=== PATIENT | male | born 1970 | race Caucasian/White ===

== ENCOUNTER 2017-04-10 22:01 | Inpatient (IN) ==
[2017-04-10 22:32] LABS: Bilirubin,Urine Small (Negative); Blood,Urine Negative (Negative); Clarity,Urine Clear (Clear); Color,Urine Dark Yellow (Yellow); Glucose,Urine (UA) Normal (Normal); Ketones,Urine Negative (Negative); Leukocyte Esterase,Urine Negative (Negative); Nitrite,Urine Negative (Negative); PH,Urine 5.5 pH Units (5.0-8.0); Protein,Urine 30 mg/dL (Neg-Trace); Specific Gravity,Urine > 1.030 (1.010-1.025); Urobilinogen,Urine Normal (Normal)
[2017-04-10 22:35] LABS: Bacteria,Urine None Seen per hpf (None-Few); Hyaline Casts,Urine Moderate per lpf (None-Few); Squamous Epithelial Cell,Urine Many per lpf (None-Few)
[2017-04-10 22:43] LABS: Basophils # 0.1 K/mcL (0.0-0.2); Basophils % 0.6 %; Eosinophils # 0.4 K/mcL (0.0-0.6); Eosinophils % 3.5 %; Hematocrit 45.4 % (37.5-50.1); Hemoglobin 14.7 g/dL (12.9-16.9); Immature Granulocytes % 0.4 % (0-4); Immature Platelets 4.6 % (1.1-6.1); Lymphocytes # 3.1 K/mcL (0.6-4.6); Lymphocytes % 31.4 %; Mean Corpuscular HGB Conc 32.4 g/dL (31.6-35.5); Mean Corpuscular Hemoglobin 28.9 pg (28.0-33.3); Mean Corpuscular Volume 89.2 fL (83.0-100.0); Mean Platelet Volume 10.1 fL (9.4-12.4); Monocytes # 0.7 K/mcL (0.0-1.3); Monocytes % 6.6 %; Neutrophils # 5.7 K/mcL (1.6-8.9); Platelet Count 318 K/mcL (140-400); Red Blood Count 5.09 M/mcL (4.19-5.50); Red Cell Distribution Width 13.9 % (11.5-14.5); Segmented Neutrophils % 57.5 %
[2017-04-10 22:46] LABS: Amphetamine Screen,Urine Negative ng/mL (Cutoff=1000); Barbiturate Screen,Urine Negative ng/mL (Cutoff=200); Benzodiazepines Screen,Urine Negative ng/mL (Cutoff=200); Cannabinoid Screen,Urine Positive ng/mL (Cutoff = 50); Cocaine Screen,Urine Negative ng/mL (Cutoff= 300); Opiate Screen,Urine Positive ng/mL (Cutoff=300); Phencyclidine Screen,Urine Negative ng/mL (Cutoff=25)
[2017-04-10 22:51] LABS: Calcium Oxalate Crystals,Urine Present; Mucus,Urine Many (Few)
[2017-04-10 22:57] LABS: Acetaminophen < 1.0 mcg/mL (10-30); BUN/Creatinine Ratio 12 (6-26); Blood Urea Nitrogen 10 mg/dL (8-26); Calcium 9.8 mg/dL (8.6-10.8); Carbon Dioxide 22 mEq/L (19-29); Chloride 108 mEq/L (98-109); Ethanol < 10 mg/dL (0-10); Glucose 102 mg/dL (70-99); Osmolality,Calculated 287 (280-300); Salicylate < 5.0 mg/dL (15-30); Sodium 139 mEq/L (136-145); eGFR For African Americans > 60 (> 60); eGFR For Non-African Americans > 60 (> 60)
[2017-04-10] MEDS ORDERED: Ibuprofen 600 MG TABLET PO ONE (23:15)
--- NOTE | 2017-04-10 23:44 | Emergency Department Note ---
Disposition Clinical Impression: Schizoaffective disorder, bipolar type, Suicidal ideation Disposition: Admitted As Inpatient Condition: Fair Time of Disposition: 02:29 Psych HPI - General Chief Complaint: ED Psychiatric Symptoms Stated Complaint: SI Time Seen by Provider: 04/10/17 22:05 Source: patient Nursing Notes Reviewed: Yes Vital Signs Reviewed: Yes - History of Present Illness HPI Narrative: 47-year-old male presents with suicidal and homicidal ideation. He states a history of bipolar disease, PTSD, schizoaffective disorder with bouts of depression. He does mention suicidal ideation but denies a plan area they say he has been hearing voices. He states he has been noncompliant with his medications for probably 2 months. He states that he did not like how they had made him feel. He does state though that he is willing to restart his medications because he realizes he needs these to take care of his mother. He is accompanied by his brother. He mentions he had recently moved from [place] where he resides. He has returned to [place] to help care for his mom who is on hospice. States he has been in [place] for approximately one month. He has not had established care with a primary care provider mental health provider here due to his insurance is [place] Medicaid, and he has not received approval for [place] Medicaid. He states his medications are Abilify 30 daily, Prozac 40 daily , and gabapentin 803 times daily. He also is noncompliant with his the cerebral 10 and simvastatin 20. Also, Does mention a history of left knee surgery, and recently fell earlier tonight and also mentions left knee pain. He denies any fevers, chills, weakness, recent illness. - Related Data Previous Rx's Medication Instructions Recorded Divalproex (24 HR) [Depakote ER 500 mg PO BID #60 tab.er.24h 05/07/15 (24 HR)] Escitalopram [Lexapro] 10 mg PO DAILY #30 tablet 05/07/15 RisperiDONE [RisperDAL] 1 mg PO BID #60 tablet 05/07/15 Allergies Allergy/AdvReac Type Severity Reaction Status Date / Time sulfamethoxazole Allergy Hives Verified 04/10/17 22:06 [From Bactrim] trimethoprim [From Bactrim] Allergy Hives Verified 04/10/17 22:06 morphine AdvReac Itching Verified 05/04/15 11:47 All systems ED: reviewed and negative except as stated. Constitutional: Denies: fever, chills Eyes: Denies: eye discharge ENT ED: Denies: throat pain Cardiovascular: Denies: palpitations Respiratory: Denies: dyspnea Gastrointestinal: Denies: nausea, vomiting Genitourinary: Denies: dysuria Musculoskeletal: Reports: as per HPI. Denies: back pain, neck pain Integumentary: Denies: rash Neurological: Denies: headache Psychiatric: Reports: as per HPI Endocrine: Denies: fatigue Hematological/Lymphatic: Denies: easy bleeding Allergic/Immunologic: Denies: facial swelling Past Medical History - Past Medical History Medical history: Reports: hyperlipidemia, other Surgical history: Reports: appendectomy, other Psychiatric history: Reports: bipolar, depression, prior suicide attempt, schizophrenia, previous psychiatric hospitalization - Social History Smoking Status: Current every day smoker Smokeless Tobacco Status: Yes Alcohol use: Reports: none Drug use: Reports: marijuana Physical Exam HEAD: atraumatic, normocephalic EYE: EOM intact, no conjunctival injection ENT: mucous membranes moist, voice normal in character, nose normal in appearance, no rhinorrhea NECK: supple, normal ROM without stiffness CHEST: symmetric chest wall rise RESPIRATORY: Present: normal lung sounds bilaterally, no respiratory distress CARDIOVASCULAR: Regular rhythm and rate ABDOMINAL EXAM: No evidence of abdominal discomfort or peritoneal signs; Absent : guarding, rebound, distention EXTREMITIES: Left knee swollen, tender. Left knee extension is intact. Otherwise extremities Grossly unremarkable on simple inspection; no deformities or decreased ROM; Absent: BLE edema BACK: Absent: CVA tenderness (R), CVA tenderness (L) NEURO: Present: alert, reflexes normal PSYCH: Suicidal and homicidal ideation is present. Normal affect; no evidence of disorganized thoughts or confusion SKIN: warm, dry, intact, normal color for age and race; no concerning rashes or lesions - General Limitations: no limitations General appearance: alert, in no apparent distress Course Course Narrative: 47-year-old male presents with 2 separate complaints. First he mentions a injury to his left knee. His knee does appear swollen and tender. X-rays ordered. Ibuprofen ordered. Patient also has a stated history of psychiatric illness, and states worsening depression, he was suicidal ideation, and auditory hallucinations. Patient seen and examined. We will try to medically clear him for 1A evaluation. - Reevaluation(s) Reevaluation #1: X-rays reviewed by myself interpreted by radiologist. Concerning signs for joint instability. Patient is status post knee arthroplasty. I did discuss with him likely need for outpatient orthopedic evaluation for his knee injury in his knee pain. He was agreeable to this and has requested a referral to Dr. Mcallister in [place] this is near where patient lives. Workup unremarkable. Analgesics ordered. Ice pack applied. 1A called Time: 00:47 Vital Signs Temperature 98.2 F 04/10/17 22:02 Pulse Rate 97 04/10/17 22:02 Respiratory Rate 18 04/10/17 22:02 Blood Pressure 132/73 04/10/17 22:02 O2 Sat by Pulse Oximetry 96 04/10/17 22:02 Temperature 97.6 F 04/11/17 02:04 Pulse Rate 78 04/11/17 02:04 Respiratory Rate 16 04/11/17 02:04 Blood Pressure 114/82 04/11/17 02:04 O2 Sat by Pulse Oximetry 96 04/10/17 22:02 Oxygen Delivery Oxygen Delivery Room Air Psych - MDM Narrative Medical decision making narrative: Patient was medically cleared and evaluated by when a staff who are recommending patient be admitted for further evaluation and stabilization. Patient currently suicidal or homicidal ideation noncompliant on his medications. I did discuss with one a staff nurse Maddy, patient has had the surgery with recent mechanical fall to the ground left knee pain with joint instability. She did mention patient will not be able to have an Marito bandage and 18. I did inform her that patient will need to have assistance walking, as he has pain with weightbearing and joint instability. Patient has been pink slipped. Workup unremarkable. Patient will be admitted and good condition. - Lab Data Result diagrams: 04/10/17 22:38 04/10/17 22:38 Lab Results 04/10/17 04/10/17 04/10/17 Range/Units 22:23 22:23 22:38 WBC 10.0 (4.3-11.1) K/mcL RBC 5.09 (4.19-5.50) M/mcL Hgb 14.7 (12.9-16.9) g/dL Hct 45.4 (37.5-50.1) % MCV 89.2 (83.0-100.0) fL MCH 28.9 (28.0-33.3) pg MCHC 32.4 (31.6-35.5) g/dL RDW 13.9 (11.5-14.5) % Plt Count 318 (140-400) K/mcL MPV 10.1 (9.4-12.4) fL Immature Gran % 0.4 (0-4) % Seg Neutrophils % 57.5 % Lymphocytes % 31.4 % Monocytes % 6.6 % Eosinophils % 3.5 % Basophils % 0.6 % Neutrophils # 5.7 (1.6-8.9) K/mcL Lymphocytes # 3.1 (0.6-4.6) K/mcL Monocytes # 0.7 (0.0-1.3) K/mcL Eosinophils # 0.4 (0.0-0.6) K/mcL Basophils # 0.1 (0.0-0.2) K/mcL Immature Plt Fraction 4.6 (1.1-6.1) % Sodium (136-145) mEq/L Potassium (3.5-4.5) mEq/L Chloride (98-109) mEq/L Carbon Dioxide (19-29) mEq/L BUN (8-26) mg/dL Creatinine (0.72-1.25) mg/dL Est GFR ( Amer) (> 60) Est GFR (Non-Af Amer) (> 60) BUN/Creatinine Ratio (6-26) Glucose (70-99) mg/dL Calculated Osmolality (280-300) Calcium (8.6-10.8) mg/dL Urine Color Dark Yellow (Yellow) Urine Clarity Clear (Clear) Urine pH 5.5 (5.0-8.0) pH Units Ur Specific [place] > 1.030 H (1.010-1.025) Urine Protein 30 H (Neg-Trace) mg/dL Urine Glucose (UA) Normal (Normal) mg/dL Urine Ketones Negative (Negative) mg/dL Urine Blood Negative (Negative) Urine Nitrite Negative (Negative) Urine Bilirubin Small H (Negative) Urine Urobilinogen Normal (Normal) mg/dL Ur Leukocyte Esterase Negative (Negative) Urine Microscopic RBC 3-5 H (0-3) per hpf Urine Microscopic WBC 3-5 H (0-3) per hpf Ur Squamous Epith Cells Many H (None-Few) per lpf Calcium Oxalate Crystal Present Urine Bacteria None Seen (None-Few) per hpf Hyaline Casts Moderate H (None-Few) per lpf Urine Mucus Many H (Few) Salicylates (15-30) mg/dL Urine Opiates Screen Positive H (Wdgaoz=192) ng/mL Acetaminophen (10-30) mcg/mL Ur Barbiturates Screen Negative (Rzucxn=470) ng/mL Ur Phencyclidine Scrn Negative (Cutoff=25) ng/mL Ur Amphetamines Screen Negative (Uakqng=7268) ng/mL U Benzodiazepines Scrn Negative (Stltzg=029) ng/mL Urine Cocaine Screen Negative (Cutoff= 300) ng/mL U Marijuana (THC) Screen Positive H (Cutoff = 50) ng/mL Ethyl Alcohol (0-10) mg/dL 04/10/17 Range/Units 22:38 WBC (4.3-11.1) K/mcL RBC (4.19-5.50) M/mcL Hgb (12.9-16.9) g/dL Hct (37.5-50.1) % MCV (83.0-100.0) fL MCH (28.0-33.3) pg MCHC (31.6-35.5) g/dL RDW (11.5-14.5) % Plt Count (140-400) K/mcL MPV (9.4-12.4) fL Immature Gran % (0-4) % Seg Neutrophils % % Lymphocytes % % Monocytes % % Eosinophils % % Basophils % % Neutrophils # (1.6-8.9) K/mcL Lymphocytes # (0.6-4.6) K/mcL Monocytes # (0.0-1.3) K/mcL Eosinophils # (0.0-0.6) K/mcL Basophils # (0.0-0.2) K/mcL Immature Plt Fraction (1.1-6.1) % Sodium 139 (136-145) mEq/L Potassium 4.0 (3.5-4.5) mEq/L Chloride 108 (98-109) mEq/L Carbon Dioxide 22 (19-29) mEq/L BUN 10 (8-26) mg/dL Creatinine 0.83 (0.72-1.25) mg/dL Est GFR ( Amer) > 60 (> 60) Est GFR (Non-Af Amer) > 60 (> 60) BUN/Creatinine Ratio 12 (6-26) Glucose 102 H (70-99) mg/dL Calculated Osmolality 287 (280-300) Calcium 9.8 (8.6-10.8) mg/dL Urine Color (Yellow) Urine Clarity (Clear) Urine pH (5.0-8.0) pH Units Ur Specific [place] (1.010-1.025) Urine Protein (Neg-Trace) mg/dL Urine Glucose (UA) (Normal) mg/dL Urine Ketones (Negative) mg/dL Urine Blood (Negative) Urine Nitrite (Negative) Urine Bilirubin (Negative) Urine Urobilinogen (Normal) mg/dL Ur Leukocyte Esterase (Negative) Urine Microscopic RBC (0-3) per hpf Urine Microscopic WBC (0-3) per hpf Ur Squamous Epith Cells (None-Few) per lpf Calcium Oxalate Crystal Urine Bacteria (None-Few) per hpf Hyaline Casts (None-Few) per lpf Urine Mucus (Few) Salicylates < 5.0 L (15-30) mg/dL Urine Opiates Screen (Tuntav=256) ng/mL Acetaminophen < 1.0 L (10-30) mcg/mL Ur Barbiturates Screen (Vwejle=477) ng/mL Ur Phencyclidine Scrn (Cutoff=25) ng/mL Ur Amphetamines Screen (Nrxrzo=7757) ng/mL U Benzodiazepines Scrn (Gxpaez=248) ng/mL Urine Cocaine Screen (Cutoff= 300) ng/mL U Marijuana (THC) Screen (Cutoff = 50) ng/mL Ethyl Alcohol < 10 (0-10) mg/dL Psychiatric Medical Clearance - Medical Clearance Checklist Medical History: No Social History Section defined Current Vitals: Last Vital Signs Temp 97.6 F 04/11/17 02:04 Pulse 78 04/11/17 02:04 Resp 16 04/11/17 02:04 BP 114/82 04/11/17 02:04 Pulse Ox 96 04/10/17 22:02 Psychiatric Lab Panel: Drug Levels and Toxicity 04/10/17 04/10/17 22:23 22:38 Urine Opiates Screen Positive H Acetaminophen < 1.0 L Ur Barbiturates Screen Negative Ur Phencyclidine Scrn Negative Ur Amphetamines Screen Negative U Benzodiazepines Scrn Negative Urine Cocaine Screen Negative U Marijuana (THC) Screen Positive H Ethyl Alcohol < 10 Abnormal Labs: Abnormal lab results Glucose 102 mg/dL (70-99) H 04/10/17 22:38 Ur Specific [place] > 1.030 (1.010-1.025) H 04/10/17 22:23 Urine Protein 30 mg/dL (Neg-Trace) H 04/10/17 22:23 Urine Bilirubin Small (Negative) H 04/10/17 22:23 Urine Microscopic RBC 3-5 per hpf (0-3) H 04/10/17 22:23 Urine Microscopic WBC 3-5 per hpf (0-3) H 04/10/17 22:23 Ur Squamous Epith Cells Many per lpf (None-Few) H 04/10/17 22:23 Hyaline Casts Moderate per lpf (None-Few) H 04/10/17 22:23 Urine Mucus Many (Few) H 04/10/17 22:23 Salicylates < 5.0 mg/dL (15-30) L 04/10/17 22:38 Urine Opiates Screen Positive ng/mL (Bdnloo=726) H 04/10/17 22:23 Acetaminophen < 1.0 mcg/mL (10-30) L 04/10/17 22:38 U Marijuana (THC) Screen Positive ng/mL (Cutoff = 50) H 04/10/17 22:23 Statement of Medical Clearance: I have evaluated the patient, reviewed diagnostic information, and certify that the patient's medical condition is sufficiently stable that transfer to the psychiatric unit does not pose a significant risk of deterioration.
[2017-04-11] MEDS ORDERED: hydrOXYzine pamoate 25 MG CAPSULE PO PRN (02:01)
[2017-04-11] MEDS ORDERED: *HR* LORazepam 2 MG/ML VIAL IM PRN (02:01)
[2017-04-11] MEDS ORDERED: *HR* LORazepam 1 MG TABLET PO PRN (02:01)
[2017-04-11] MEDS ORDERED: Mag Hydrox/Al Hydrox/Simeth 30 ML UDC PO PRN (02:01)
[2017-04-11] MEDS ORDERED: Haloperidol Lactate 5 MG/ML VIAL IM PRN (02:01)
[2017-04-11] MEDS ORDERED: MOM Conc 10 ML UD.LIQ PO PRN (02:01)
[2017-04-11] MEDS ORDERED: *HR* Metformin 500 MG TABLET PO SCH (08:00)
[2017-04-11] MEDS: Nicotine 21 MG PATCH.TD24 TD SCH (11:38)
--- NOTE | 2017-04-11 13:32 | Psychiatry History & Physical ---
Date of Encounter: 04/11/17 Time of Encounter: 13:20 History of Present Illness Patient Stated Chief Complaint: I STOPPED MY MEDICATION, and when i had thought about hurting my brother i Medicare Admission Attestation: For traditional Medicare patients the provided hospital inpatient services are reasonable and necessary and in the case of services not specified as inpatient -only under 42 CFR 419.22 (n), that they are appropriately provided as inpatient services in accordance 42 CFR 412.3. For Critical Access Hospital the patient may reasonably be expected to be discharged or transferred to a hospital within 96 hours after admission to the Critical Access Hospital. Admitted From: Emergency Dept Plans for Post Hospital Care: Home History of Present Illness: Mr. Castillo is a 47 year old male WITH LONG HISTORY of Schizoaffective disorder , PTSD and Bipolar Affective disorder and marijuana use . he came to ER with his brother as having Suicidal ideas and homicidal thoughts as voices were telling him to hurt himself and was admitted to . He had stopped his medication as did not like them and depression getting worse. He at present is very depress, anhedonia, lack of motivation , sleep not good , positive Aud. hallucinations which are commanding and telling him to hurt himself and others in general , no plan . His stressors are mother terminally ill and in hospice here in [place] and he goes back and forth to [place] as his family there. he was taking care of his mother. pt is on disability and has not seen psychiatrist for 3 months in [place] , he was prescribed abilify ,lexapro and neurontin. he states abilify didnot help at all and felt lexapro was not enough. he denies any alcohol , drugs except Marijuana occasionally. At present depressed, suicidal , homicidal , commanding auditory hallucinations , patient has h/o DM, obesity, HTN , HL. he has stopped all meds for 2 months , his BS is wnl and is also his BP , will monitor and start meds . Past Med Surg Social Fam HX - Past Medical History Medical history: hyperlipidemia, other - Past Psychiatric History Psychiatric history: Reports: bipolar, depression, panic disorder, PTSD, prior suicide attempt, schizophrenia, previous psychiatric hospitalization Family psychiatric history: Yes Family History of Suicide: Completed (cousin od and succeded, daughter has bipolar and some cousins.) - Past Surgical History Surgical History: appendectomy, other - Social History Smoking Status: Current every day smoker Smokeless Tobacco Status: Yes Alcohol use: none Drug use: marijuana Medications & Allergies Aripiprazole [Abilify] 30 mg PO DAILY 04/11/17 [History] FLUoxetine HCl [Prozac] 40 mg PO DAILY 04/11/17 [History] Gabapentin [Neurontin] 800 mg PO TID 04/11/17 [History] HYDROcodone/Acet 10/325 mg [[place] 10-325 mg] 1 tab PO Q6HR PRN 04/11/17 [History ] Lisinopril [Zestril] 10 mg PO DAILY 04/11/17 [History] Meloxicam 15 mg PO DAILY 04/11/17 [History] Metformin HCl [Metformin HCl ER] 500 mg PO BID 04/11/17 [History] Omeprazole [PriLOSEC] 40 mg PO DAILY 04/11/17 [History] Quetiapine Fumarate [SEROquel] 100 mg PO HS 04/11/17 [History] Rivaroxaban [Xarelto] 20 mg PO DAILY 04/11/17 [History] Simvastatin [Zocor] 20 mg PO HS 04/11/17 [History] 3 Allergy/AdvReac Type Severity Reaction Status Date / Time sulfamethoxazole Allergy Hives Verified 04/10/17 22:06 [From Bactrim] trimethoprim [From Bactrim] Allergy Hives Verified 04/10/17 22:06 morphine AdvReac Itching Verified 05/04/15 11:47 Review of Systems Constitutional: Denies: fever, chills, weakness, weight change Eyes: Denies: eye pain, vision change Ears, Nose, Throat: Denies: ear pain, throat pain, dental pain, hearing loss, congestion Cardiovascular: Denies: chest pain, palpitations, dyspnea on exertion Respiratory: Denies: cough, dyspnea, wheezes Gastrointestinal: Denies: abdominal pain, nausea, vomiting, diarrhea, constipation Genitourinary male: Denies: urgency, dysuria, frequency, genital lesions Genitourinary female: Denies: urgency, dysuria, frequency, abnormal menses, dyspareunia Musculoskeletal: Denies: joint swelling, joint pain Integumentary: Denies: rash, lesions, pruritus Neurological: Denies: headache, weakness, numbness, memory loss Psychiatric: Reports: depression, anxiety, abnormal sleep pattern, suicidal ideation, homicidal ideation, auditory hallucinations, anhedonia, difficulty concentrating, hopelessness, irritability Endocrine: Denies: fatigue, heat or cold intolerance Hematologic/Lymphatic: Denies: easy bruising, lymphadenopathy Allergic/Immunologic: Denies: urticaria, itchy eyes Mental Status Exam Patient orientation: Yes Person, Yes Time, Yes Place Level of alertness: Alert Patient appearance: Appropriate Behavior: cooperative, withdrawn Psychomotor activity: Slowed Eye contact: Minimal Contact Mood description: Depressed Affect description: congruent with mood, dysphoric Speech pattern: Slowed Speech volume: Normal Thought process: Slowed Thinking Thought content: Yes Suicidal ideation, Yes Homicidal ideation, Yes Preoccupation, Yes Nihilistic delusion Perceptual disturbances: Yes Auditory hallucinations Attention span: Unable to Focus Memory description: Recent Intact Patient reliability: Reliable Historian Intelligence estimate: Average Judgment: Limited Insight: Partial Exam - HEENT Head exam IM: Present: atraumatic, normal inspection, normocephalic Eye exam IM: Present: normal appearance - Neurological Neurological exam IM: Present: abnormal gait, alert, CN II-XII intact - Skin Skin exam IM: Present: dry (patient had been examined in ER.), warm Results - Vital Signs Vital signs: Temp Pulse Resp BP Pulse Ox 96.8 F L 81 16 108/76 96 04/11/17 09:00 04/11/17 09:00 04/11/17 09:00 04/11/17 09:00 04/10/17 22:02 - Labs Labs: Laboratory Last Values WBC 10.0 K/mcL (4.3-11.1) 04/10/17 22:38 RBC 5.09 M/mcL (4.19-5.50) 04/10/17 22:38 Hgb 14.7 g/dL (12.9-16.9) 04/10/17 22:38 Hct 45.4 % (37.5-50.1) 04/10/17 22:38 MCV 89.2 fL (83.0-100.0) 04/10/17 22:38 MCH 28.9 pg (28.0-33.3) 04/10/17 22:38 MCHC 32.4 g/dL (31.6-35.5) 04/10/17 22:38 RDW 13.9 % (11.5-14.5) 04/10/17 22:38 Plt Count 318 K/mcL (140-400) 04/10/17 22:38 MPV 10.1 fL (9.4-12.4) 04/10/17 22:38 Immature Gran % 0.4 % (0-4) 04/10/17 22:38 Seg Neutrophils % 57.5 % 04/10/17 22:38 Lymphocytes % 31.4 % 04/10/17 22:38 Monocytes % 6.6 % 04/10/17 22:38 Eosinophils % 3.5 % 04/10/17 22:38 Basophils % 0.6 % 04/10/17 22:38 Neutrophils # 5.7 K/mcL (1.6-8.9) 04/10/17 22:38 Lymphocytes # 3.1 K/mcL (0.6-4.6) 04/10/17 22:38 Monocytes # 0.7 K/mcL (0.0-1.3) 04/10/17 22:38 Eosinophils # 0.4 K/mcL (0.0-0.6) 04/10/17 22:38 Basophils # 0.1 K/mcL (0.0-0.2) 04/10/17 22:38 Immature Plt Fraction 4.6 % (1.1-6.1) 04/10/17 22:38 Sodium 139 mEq/L (136-145) 04/10/17 22:38 Potassium 4.0 mEq/L (3.5-4.5) 04/10/17 22:38 Chloride 108 mEq/L (98-109) 04/10/17 22:38 Carbon Dioxide 22 mEq/L (19-29) 04/10/17 22:38 BUN 10 mg/dL (8-26) 04/10/17 22:38 Creatinine 0.83 mg/dL (0.72-1.25) 04/10/17 22:38 Est GFR ( Amer) > 60 (> 60) 04/10/17 22:38 Est GFR (Non-Af Amer) > 60 (> 60) 04/10/17 22:38 BUN/Creatinine Ratio 12 (6-26) 04/10/17 22:38 Glucose 102 mg/dL (70-99) H 04/10/17 22:38 POC Glucose 98 (58-89) H 04/11/17 07:05 Calculated Osmolality 287 (280-300) 04/10/17 22:38 Calcium 9.8 mg/dL (8.6-10.8) 04/10/17 22:38 Urine Color Dark Yellow (Yellow) 04/10/17 22:23 Urine Clarity Clear (Clear) 04/10/17 22:23 Urine pH 5.5 pH Units (5.0-8.0) 04/10/17 22:23 Ur Specific [place] > 1.030 (1.010-1.025) H 04/10/17 22:23 Urine Protein 30 mg/dL (Neg-Trace) H 04/10/17 22:23 Urine Glucose (UA) Normal mg/dL (Normal) 04/10/17 22:23 Urine Ketones Negative mg/dL (Negative) 04/10/17 22:23 Urine Blood Negative (Negative) 04/10/17 22:23 Urine Nitrite Negative (Negative) 04/10/17 22:23 Urine Bilirubin Small (Negative) H 04/10/17 22:23 Urine Urobilinogen Normal mg/dL (Normal) 04/10/17 22:23 Ur Leukocyte Esterase Negative (Negative) 04/10/17 22:23 Urine Microscopic RBC 3-5 per hpf (0-3) H 04/10/17 22:23 Urine Microscopic WBC 3-5 per hpf (0-3) H 04/10/17 22:23 Ur Squamous Epith Cells Many per lpf (None-Few) H 04/10/17 22:23 Calcium Oxalate Crystal Present 04/10/17 22:23 Urine Bacteria None Seen per hpf (None-Few) 04/10/17 22:23 Hyaline Casts Moderate per lpf (None-Few) H 04/10/17 22:23 Urine Mucus Many (Few) H 04/10/17 22:23 Salicylates < 5.0 mg/dL (15-30) L 04/10/17 22:38 Urine Opiates Screen Positive ng/mL (Ggoppy=650) H 04/10/17 22:23 Acetaminophen < 1.0 mcg/mL (10-30) L 04/10/17 22:38 Ur Barbiturates Screen Negative ng/mL (Xboysv=491) 04/10/17 22:23 Ur Phencyclidine Scrn Negative ng/mL (Cutoff=25) 04/10/17 22:23 Ur Amphetamines Screen Negative ng/mL (Vxcmgy=1982) 04/10/17 22:23 U Benzodiazepines Scrn Negative ng/mL (Dnmkpc=926) 04/10/17 22:23 Urine Cocaine Screen Negative ng/mL (Cutoff= 300) 04/10/17 22:23 U Marijuana (THC) Screen Positive ng/mL (Cutoff = 50) H 04/10/17 22:23 Ethyl Alcohol < 10 mg/dL (0-10) 04/10/17 22:38 Assessment and Plan (1) Schizoaffective disorder, bipolar type Current visit: Yes Status: Acute Plan: Admit inpatient for safety and stabilization, Close observation, Suicide Precautions per unit protocol, Encourage participation in unit milieu, Group Therapy, Monitor sleep, Monitor appetite, Family/Supportive other meeting Additional Plan: patient in structure enviorment for safety , medications started. Risks, benefits, side effects, alternatives discussed w/pt: Yes Patient agreeable to treatment: Yes Plans for Post Hospital Care: Home (2) Anxiety disorder Current visit: No Status: Acute Plan: Admit inpatient for safety and stabilization, Close observation, Suicide Precautions per unit protocol, Encourage participation in unit milieu, Group Therapy, Monitor sleep, Monitor appetite, Family/Supportive other meeting Risks, benefits, side effects, alternatives discussed w/pt: Yes Patient agreeable to treatment: Yes Plans for Post Hospital Care: Home Qualifiers: Anxiety disorder type: generalized anxiety disorder Qualified Code(s): F41.1 - Generalized anxiety disorder (3) Suicidal ideation Current visit: Yes Status: Acute Plan: Admit inpatient for safety and stabilization, Close observation, Suicide Precautions per unit protocol, Encourage participation in unit milieu, Group Therapy, Monitor sleep, Monitor appetite, Secure weapons, Family/Supportive other meeting Risks, benefits, side effects, alternatives discussed w/pt: Yes Patient agreeable to treatment: Yes Plans for Post Hospital Care: Home (4) PTSD (post-traumatic stress disorder) Current visit: Yes Status: Chronic Plan: Admit inpatient for safety and stabilization, Close observation, Suicide Precautions per unit protocol, Encourage participation in unit milieu, Group Therapy, Monitor sleep, Monitor appetite, Family/Supportive other meeting Risks, benefits, side effects, alternatives discussed w/pt: Yes Patient agreeable to treatment: Yes Plans for Post Hospital Care: Home
[2017-04-11] MEDS: Gabapentin 100 MG CAPSULE PO SCH ×2 (15:41→21:23)
[2017-04-11] MEDS: risperiDONE 0.25 MG TABLET PO SCH (21:23)
[2017-04-11] MEDS: traZODone 50 MG TABLET PO PRN (21:23)
[2017-04-12] MEDS: risperiDONE 0.25 MG TABLET PO SCH ×2 (09:09→20:55)
[2017-04-12] MEDS: Nicotine 21 MG PATCH.TD24 TD SCH (09:09)
[2017-04-12] MEDS: Gabapentin 100 MG CAPSULE PO SCH (09:10)
--- NOTE | 2017-04-12 14:11 | Psychiatry Progress Note ---
Date of Encounter: 04/12/17 Time of Encounter: 13:50 Subjective Interval history: Patient seen today , case d/w treatment team , as per team patient still isolative, did not attend groups, not suicidal still hallucinations are still present. states i feel better as voices are not as bad and are muffled now, still depress and in room isolated and denies suicidal ideas denies side effects. will increase gabapentin , patient agreed with plan. encouraged to shower as not showered for 3 days and to attend groups. Review of Systems Psychiatric: Reports: depression, anxiety, abnormal sleep pattern, auditory hallucinations, anhedonia, difficulty concentrating, hopelessness, irritability Objective: Exam Patient orientation: Yes Person, Yes Time, Yes Place Level of alertness: Alert Patient appearance: Disheveled Behavior: cooperative, withdrawn Psychomotor activity: Slowed Eye contact: Minimal Contact Mood description: Depressed Affect description: congruent with mood Speech pattern: Slowed Speech volume: Normal Thought process: Logical Thought content: Yes Preoccupation Perceptual disturbances: Yes Auditory hallucinations Judgment: Limited Insight: Partial Results - Vital Signs Vital Signs: Temp Pulse Resp BP Pulse Ox 97.7 F 87 18 129/80 96 04/12/17 09:40 04/12/17 09:40 04/11/17 20:29 04/11/17 20:29 04/10/17 22:02 - Labs Labs: Laboratory Results - last 24 hr 04/11/17 21:51 POC Glucose 81 Assessment and Plan (1) Schizoaffective disorder, bipolar type Current visit: Yes Status: Acute Risks, benefits, side effects, alternatives discussed w/pt: Yes Patient agreeable to treatment: Yes (2) Anxiety disorder Current visit: No Status: Acute Risks, benefits, side effects, alternatives discussed w/pt: Yes Patient agreeable to treatment: Yes Qualifiers: Anxiety disorder type: generalized anxiety disorder Qualified Code(s): F41.1 - Generalized anxiety disorder (3) Suicidal ideation Current visit: Yes Status: Acute Risks, benefits, side effects, alternatives discussed w/pt: Yes Patient agreeable to treatment: Yes (4) PTSD (post-traumatic stress disorder) Current visit: Yes Status: Chronic Risks, benefits, side effects, alternatives discussed w/pt: Yes Patient agreeable to treatment: Yes Consult Discharge Plan - Plan Referrals: NONE,PCP [Primary Care Provider] -
[2017-04-12] MEDS: Gabapentin 300 MG CAPSULE PO SCH ×2 (14:52→20:55)
[2017-04-12] MEDS: traZODone 50 MG TABLET PO PRN (20:55)
[2017-04-12] MEDS: Ibuprofen 400 MG TABLET PO PRN (20:55)
[2017-04-13] MEDS: Nicotine 21 MG PATCH.TD24 TD SCH (08:27)
[2017-04-13] MEDS: risperiDONE 0.25 MG TABLET PO SCH ×2 (08:27→20:36)
[2017-04-13] MEDS: Gabapentin 300 MG CAPSULE PO SCH ×3 (08:28→20:36)
--- NOTE | 2017-04-13 11:31 | Psychiatry Progress Note ---
Date of Encounter: 04/13/17 Time of Encounter: 11:05 Subjective Interval history: Patient seen today , case d/w staff and treatment team patient still having hallucination and depression is improving . states i am ok , voices are not so bad, my pain is still there but not high as before and moods are getting better, is compliant with unit miliue. family is supportive, denies suicidal idea, he has been non compliant with medication and education given. denies side effects. Review of Systems Psychiatric: Reports: depression, anxiety, abnormal sleep pattern, auditory hallucinations, anhedonia, difficulty concentrating, hopelessness, irritability Objective: Exam Patient orientation: Yes Person, Yes Time, Yes Place Level of alertness: Alert Patient appearance: Appropriate Behavior: calm, cooperative Psychomotor activity: Normal Eye contact: Maintains Eye Contact Mood description: Depressed, Anxious Affect description: congruent with mood Speech pattern: Slowed Speech volume: Normal Thought process: Intact Thought content: Yes Intact, Yes Guilt Perceptual disturbances: Yes Auditory hallucinations Judgment: Limited Insight: Partial Results - Vital Signs Vital Signs: Temp Pulse Resp BP Pulse Ox 98.6 F 74 18 123/87 96 04/13/17 08:09 04/13/17 08:09 04/13/17 08:09 04/13/17 08:09 04/10/17 22:02 - Labs Labs: Laboratory Results - last 24 hr 04/13/17 08:01 POC Glucose 91 H Assessment and Plan (1) Schizoaffective disorder, bipolar type Current visit: Yes Status: Acute Risks, benefits, side effects, alternatives discussed w/pt: Yes Patient agreeable to treatment: Yes (2) Anxiety disorder Current visit: No Status: Acute Risks, benefits, side effects, alternatives discussed w/pt: Yes Patient agreeable to treatment: Yes Qualifiers: Anxiety disorder type: generalized anxiety disorder Qualified Code(s): F41.1 - Generalized anxiety disorder (3) Suicidal ideation Current visit: Yes Status: Acute Risks, benefits, side effects, alternatives discussed w/pt: Yes Patient agreeable to treatment: Yes (4) PTSD (post-traumatic stress disorder) Current visit: Yes Status: Chronic Risks, benefits, side effects, alternatives discussed w/pt: Yes Patient agreeable to treatment: Yes Consult Discharge Plan - Plan Referrals: [facility] [Outside] (The above appointment is with . When you come to your first appointment, you will be completing paperwork, meeting with a counselor, and developing a treatment plan. You will receive follow- up appointments for on-going services, which could include community support, mental health and substance abuse counseling, groups/partial hospitalization programming and medication management services (6 - 8 week wait). Please bring the following with you to your first visit to the clinic: 1) proof of household income (two consecutive pay stubs, social security award letter, bank statement , statement letter from [facility], child support statement, IRS 1040 or W2 form, or a statement from the person who financially supports you stating they help provide for your basic needs), 2) proof of residency (drivers license, a piece of mail showing your address, a statement from person you live with verifying you live at their address), 3) your social security card, 4) photo ID, 5) your insurance card (if you have commercial insurance you must call to obtain a prior authorization number before you arrive to your first appointment) and 6) if you do not have insurance but have applied for Medicaid, please bring verification you have applied. This is the first available appointment. You may contact the office regularly to check for cancellations that may allow you to be seen sooner. ) Jose Luis Ochoa, PAC [Physician Building Construction Foreman] - 04/24/17 1:00 pm (The above appointment is with AUSTIN Connolly, at [facility]. This appointment is to establish you with a primary care provider. Your needs for medication will be assessed and treated as indicated as well. Please arrive 15 minutes early to complete paperwork. Please bring your insurance card, photo ID and list of current medications to your first appointment. This is the first available appointment. You may contact the office regularly to check for cancellations that may allow you to be seen sooner. )
[2017-04-13] MEDS: traZODone 50 MG TABLET PO PRN (20:37)
[2017-04-13] MEDS: Ibuprofen 400 MG TABLET PO PRN (20:39)
[2017-04-14] MEDS: Gabapentin 300 MG CAPSULE PO SCH (09:15)
[2017-04-14] MEDS: risperiDONE 0.25 MG TABLET PO SCH (09:15)
[2017-04-14] MEDS: Nicotine 21 MG PATCH.TD24 TD SCH (09:16)
[2017-04-14 09:36] VITALS: BP 129/76
--- NOTE | 2017-04-14 11:32 | Discharge Summary ---
Date of Encounter: 04/14/17 Time of Encounter: 11:00 Diagnosis - Discharge Diagnosis (1) Schizoaffective disorder, bipolar type Status: Acute Comments: patient is at his baseline and no auditory hallucinations/psychosis , not in danger to self/others at present. (2) Anxiety disorder Status: Chronic Qualifiers: Anxiety disorder type: generalized anxiety disorder Qualified Code(s): F41.1 - Generalized anxiety disorder (3) Suicidal ideation Status: Resolved (4) PTSD (post-traumatic stress disorder) Status: Chronic Medications - Discharge Medications Prescriptions: Escitalopram [Lexapro] 10 mg PO DAILY #30 tablet Gabapentin [Neurontin] 300 mg PO TID #90 capsule risperiDONE [RisperDAL] 0.5 mg PO BID #60 tablet traZODone [TraZODone] 50 mg PO HS PRN #30 tablet PRN Reason: Insomnia HYDROcodone/Acet 10/325 mg [Dingess 10-325 mg] 1 tab PO Q6HR PRN 04/11/17 [History ] Lisinopril [Zestril] 10 mg PO DAILY 04/11/17 [History] Meloxicam 15 mg PO DAILY 04/11/17 [History] Metformin HCl [Metformin HCl ER] 500 mg PO BID 04/11/17 [History] Omeprazole [PriLOSEC] 40 mg PO DAILY 04/11/17 [History] Rivaroxaban [Xarelto] 20 mg PO DAILY 04/11/17 [History] Simvastatin [Zocor] 20 mg PO HS 04/11/17 [History] Escitalopram [Lexapro] 10 mg PO DAILY #30 tablet 04/14/17 [Rx] Gabapentin [Neurontin] 300 mg PO TID #90 capsule 04/14/17 [Rx] Simvastatin [Zocor] 20 mg PO HS tablet 04/14/17 [Rx] metFORMIN [Glucophage] 500 mg PO BIDWM tablet 04/14/17 [Rx] risperiDONE [RisperDAL] 0.5 mg PO BID #60 tablet 04/14/17 [Rx] traZODone [TraZODone] 50 mg PO HS PRN #30 tablet 04/14/17 [Rx] 3 Allergy/AdvReac Type Severity Reaction Status Date / Time sulfamethoxazole Allergy Hives Verified 04/10/17 22:06 [From Bactrim] trimethoprim [From Bactrim] Allergy Hives Verified 04/10/17 22:06 morphine AdvReac Itching Verified 05/04/15 11:47 Provider Date of admission: 04/11/17 01:42 Primary care physician: PCP NONE Assessment and Plan - Patient/Caregiver Discharge Instructions Activity: resume usual activities as tolerated Diet: regular diet - Follow [facility] - 04/19/17 8:30 am (The above appointment is with Nancy Singh. When you come to your first appointment, you will be completing paperwork, meeting with a counselor, and developing a treatment plan. You will receive follow- up appointments for on-going services , which could include community support, mental health and substance abuse counseling, groups/partial hospitalization programming and medication management services (6 - 8 week wait). Please bring the following with you to your first visit to the clinic: 1) proof of household income (two consecutive pay stubs, social security award letter, bank statement, statement letter from [facility], child support statement, IRS 1040 or W2 form, or a statement from the person who financially supports you stating they help provide for your basic needs), 2) proof of residency (drivers license, a piece of mail showing your address, a statement from person you live with verifying you live at their address), 3) your social security card, 4) photo ID, 5) your insurance card (if you have commercial insurance you must call to obtain a prior authorization number before you arrive to your first appointment) and 6) if you do not have insurance but have applied for Medicaid, please bring verification you have applied. This is the first available appointment. You may contact the office regularly to check for cancellations that may allow you to be seen sooner. ) Jose Luis Ochoa PAC [Physician Electrical Repairer] - 04/24/17 1:00 pm (The above appointment is with AUSTIN Connolly, at [facility]. This appointment is to establish you with a primary care provider. Your needs for medication will be assessed and treated as indicated as well. Please arrive 15 minutes early to complete paperwork. Please bring your insurance card, photo ID and list of current medications to your first appointment. This is the first available appointment. You may contact the office regularly to check for cancellations that may allow you to be seen sooner. ) Overall status at discharge: patient is back to baseline Disposition: Home, Self-Care Hospital Course Hospital course: Mr. Castillo is a 47 year old male admitted from ER with h/o schizophrnia and depression , was suicidal and having commanding hallucinations. patieent had been non compliant and was not on any meds for 2 months. During course of hospitalization , he was compliant with treatment plan and was started on lexapro , he was given trazodone and seroquel hs discontinued as it caused restless leg. His aud. hallucinations improved and he denied any paranoia, depression stable and no suicidal thoughts. denied side effects. medically his blood sugar and Bp were stable and therefore was on hold here , he is going to his PCP for med. adjustment. he has given appointment for out patient psychiatrist. Time spent discussing smoking cessation with patient: 3 to 10 minutes Does patient wish to continue nicotine replacement upon disc: Yes (denies, doesnot want to give up smoking , as now on 1ppd was on 3 ppd) - Time Spent with Patient Total time spent providing and/or coordinating discharge services: Greater than 30 minutes Quality - Multiple Antipsychotics Patient discharged on 2 or more antipsychotic medications: No - Justification Documentation of: Recommended plan to taper to monotherapy (patient was on abilify and seroquel , his seroquel was dc.) - Additional Details Additional Details: patient stable on meds, AIMS 0 Procedures - Procedures Procedures: Medication Management, Crisis Stabilization, Supportive Therapy, Group Therapy, Psychoeducational Therapy Mental Status Exam - Mental Status Exam Patient orientation: Yes Person, Yes Time, Yes Place Level of alertness: Alert Patient appearance: Appropriate Behavior: calm, cooperative Psychomotor activity: Normal Eye contact: Maintains Eye Contact Mood description: Euthymic/stable Affect description: congruent with mood Speech pattern: Coherent Speech Volume: Normal Thought process: Intact Thought Content: Yes Intact Judgment: Good Insight: Partial
[2017-04-14] MEDS ORDERED: FLUARIX QUAD 2017-18 36MOS UP/PF 0.5 ML SYRINGE IM ONE (13:32)
== END 2017-04-14 14:05 | disposition home or self-care (01) | DRG 750 ==
LOC: EMEROO 22:01 → 1ANU 04-11 01:42
PROVIDERS: ADMIT Psychiatry & Neurology Psychiatry; ATTEND Psychiatry & Neurology Psychiatry

== ENCOUNTER 2020-05-12 16:37 | Inpatient (IN) ==
[2020-05-12 17:20] LABS: Amphetamine Screen,Urine Negative ng/mL (Cutoff=1000); Barbiturate Screen,Urine Negative ng/mL (Cutoff=200); Benzodiazepines Screen,Urine Negative ng/mL (Cutoff=200); Cannabinoid Screen,Urine Positive ng/mL (Cutoff = 50); Cocaine Screen,Urine Negative ng/mL (Cutoff= 300); Opiate Screen,Urine Negative ng/mL (Cutoff=300); Phencyclidine Screen,Urine Negative ng/mL (Cutoff=25)
[2020-05-12 17:21] LABS: Bacteria,Urine Few per hpf (None-Few); Bilirubin,Urine Small (Negative); Blood,Urine Negative (Negative); Clarity,Urine Turbid (Clear); Color,Urine Yellow (Yellow); Glucose,Urine (UA) 30 mg/dL (Normal); Ketones,Urine 10 mg/dL (Negative); Leukocyte Esterase,Urine Negative (Negative); Mucus,Urine Many per lpf (None-Few); Nitrite,Urine Negative (Negative); Protein,Urine 100 mg/dL (Neg-Trace); Specific Gravity,Urine > 1.030 (1.010-1.025)
[2020-05-12 17:34] LABS: Basophils # 0.1 K/mcL (0.0-0.2); Basophils % 0.5 %; Eosinophils # 0.2 K/mcL (0.0-0.6); Eosinophils % 1.6 %; Hemoglobin 18.4 g/dL (12.9-16.9); Immature Granulocytes % 0.4 % (0-4); Lymphocytes # 2.7 K/mcL (0.6-4.6); Lymphocytes % 26.7 %; Mean Corpuscular Hemoglobin 31.1 pg (28.0-33.3); Mean Corpuscular Volume 94.2 fL (83.0-100.0); Mean Platelet Volume 10.5 fL (9.4-12.4); Monocytes # 0.5 K/mcL (0.0-1.3); Monocytes % 4.9 %; Neutrophils # 6.7 K/mcL (1.6-8.9); Platelet Count 274 K/mcL (140-400); Red Blood Count 5.91 M/mcL (4.19-5.50); Red Cell Distribution Width 13.9 % (11.5-14.5); Segmented Neutrophils % 65.9 %; White Blood Count 10.1 K/mcL (4.3-11.1)
[2020-05-12 17:37] LABS: Acetaminophen < 10 mcg/mL (10-20); Alanine Aminotransferase 24 Units/L (7-52); Albumin 4.3 g/dL (3.5-5.7); Albumin/Globulin Ratio 1.2 (1.1-2.2); Alkaline Phosphatase 85 Units/L (34-104); Aspartate Amino Transferase 18 Units/L (13-39); BUN/Creatinine Ratio 18 (6-26); Bilirubin,Direct 0.1 mg/dL (0.0-0.2); Bilirubin,Indirect 0.3 mg/dL (0.0-1.0); Bilirubin,Total 0.4 mg/dL (0.3-1.0); Blood Urea Nitrogen 17 mg/dL (6-20); Calcium 9.6 mg/dL (8.6-10.3); Carbon Dioxide 24 mEq/L (23-29); Chloride 105 mEq/L (98-107); Cholesterol 217 mg/dL (< 200); Ethanol < 10 mg/dL (Less than 10); Globulin 3.5 g/dL (2.4-3.5); Glucose 213 mg/dL (70-105); HDL Cholesterol 36 mg/dL (40-59); LDL Cholesterol,Calculated 133 mg/dL (< 100); Osmolality,Calculated 288 (280-300); Salicylate < 2.5 mg/dL (15.0-30.0); Sodium 135 mEq/L (136-145); Total Protein 7.8 g/dL (6.4-8.9); Triglycerides 239 mg/dL (< 150); eGFR For African Americans > 60 (> 60); eGFR For Non-African Americans > 60 (> 60)
[2020-05-12 17:39] LABS: Hematocrit 55.7 % (37.5-50.1)
[2020-05-12 17:49] LABS: Estimated Average Glucose 143 mg/dl
[2020-05-12] MEDS ORDERED: Lidocaine 1% 20 ML MDV INFILT ONE (18:37)
[2020-05-12] MEDS ORDERED: *HR* LORazepam 1 MG TABLET PO PRN (21:45)
[2020-05-12] MEDS ORDERED: haloperidoL 5 MG TABLET PO PRN (21:45)
[2020-05-12] MEDS ORDERED: MOM Conc 10 ML UD.LIQ PO PRN (21:45)
[2020-05-12] MEDS ORDERED: Haloperidol Lactate 5 MG/ML VIAL IM PRN (21:45)
[2020-05-12] MEDS ORDERED: *HR* LORazepam 2 MG/ML VIAL IM PRN (21:45)
[2020-05-12] MEDS ORDERED: Mag Hydrox/Al Hydrox/Simeth 30 ML UDC PO PRN (21:45)
[2020-05-12] MEDS ORDERED: Acetaminophen 325 MG TABLET PO PRN (21:45)
[2020-05-12] MEDS: hydrOXYzine pamoate 25 MG CAPSULE PO PRN (23:38)
[2020-05-12] MEDS: traZODone 50 MG TABLET PO PRN (23:38)
[2020-05-13] MEDS: FLUoxetine 20 MG CAPSULE PO SCH (09:02)
[2020-05-13] MEDS: Gabapentin 400 MG CAPSULE PO SCH ×3 (09:02→21:57)
[2020-05-13] MEDS: Nicotine 21 MG PATCH.TD24 TD SCH (09:02)
[2020-05-13] MEDS: ARIPiprazole 5 MG TABLET PO SCH (09:02)
[2020-05-13] MEDS: traZODone 50 MG TABLET PO PRN (21:57)
[2020-05-13] MEDS: hydrOXYzine pamoate 25 MG CAPSULE PO PRN (21:57)
[2020-05-14] MEDS: Gabapentin 400 MG CAPSULE PO SCH ×3 (08:42→20:29)
[2020-05-14] MEDS: FLUoxetine 20 MG CAPSULE PO SCH (08:42)
[2020-05-14] MEDS: ARIPiprazole 5 MG TABLET PO SCH (08:42)
[2020-05-14] MEDS: Nicotine 21 MG PATCH.TD24 TD SCH (08:43)
[2020-05-14] MEDS ORDERED: ARIPiprazole 400 MG SUSER.SYR IM ONE (12:00)
[2020-05-15] MEDS: Nicotine 21 MG PATCH.TD24 TD SCH (09:06)
[2020-05-15] MEDS: ARIPiprazole 5 MG TABLET PO SCH (09:08)
[2020-05-15] MEDS: FLUoxetine 20 MG CAPSULE PO SCH (09:08)
[2020-05-15] MEDS: Gabapentin 400 MG CAPSULE PO SCH ×3 (09:08→21:11)
[2020-05-15] MEDS ORDERED: ARIPiprazole 400 MG SUSER.SYR IM SCH (13:15)
[2020-05-16] MEDS: FLUoxetine 20 MG CAPSULE PO SCH (08:48)
[2020-05-16] MEDS: Gabapentin 400 MG CAPSULE PO SCH (08:48)
[2020-05-16] MEDS: Nicotine 21 MG PATCH.TD24 TD SCH (08:49)
[2020-05-16] MEDS ORDERED: ARIPiprazole 400 MG SUSER.SYR IM SCH (09:00)
[2020-05-16 09:47] VITALS: BP 111/74
[2020-05-16] MEDS ORDERED: FLU Vac QV 20-21 (6Month+)/PF 0.5 ML SYRINGE IM ONE (09:53)
== END 2020-05-16 11:00 | disposition home or self-care (01) | DRG 885 ==
LOC: EMEROOARM 16:37 → 1ANU 21:19
PROVIDERS: ADMIT Psychiatry & Neurology Forensic Psychiatry; ATTEND Psychiatry & Neurology Forensic Psychiatry